=== PATIENT | female | born 1955 | race American Indian/Alaskan Native ===

== ENCOUNTER 2017-05-06 11:21 | Inpatient (IN) | payer MEDICAID, MEDICARE ==
[2017-05-06 13:24] LABS: Hematocrit 40.5 % (30.3-42.9); Hemoglobin 13.2 gm/dl (10.1-14.3); Mean Corpuscular HGB Conc 33 % (30-34); Mean Corpuscular Hemoglobin 31 pg (28-32); Mean Corpuscular Volume 94 fl (79-97); Platelet Count 218 K/mm3 (140-440); Red Blood Count 4.29 M/mm3 (3.65-5.03); Red Cell Distribution Width 14.3 % (13.2-15.2)
[2017-05-06 13:25] LABS: Albumin 3.5 g/dL (3.9-5); BUN/Creatinine Ratio 28; Blood Urea Nitrogen 17 mg/dL (7-17); Calcium 8.6 mg/dL (8.4-10.2); Hemolysis Index 112
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
--- NOTE | 2017-05-06 14:07 | Cat Scan Report ---
CT HEAD WITHOUT CONTRAST INDICATION: Altered mental status. COMPARISON: None similar at this institution. FINDINGS: Noncontrast head CT demonstrates mildly enlarged though age-appropriate, symmetric ventricles and sulci. Mild periventricular hypodensities. No acute infarct, hemorrhage, mass effect or midline shift. No abnormal extraaxial fluid collections. Normal posterior fossa with preserved basilar cisterns. Normal eye globes. Few radiopaque dental fillings create streak artifact. Mild leftward nasal septal bowing. Mild air-fluid level/mucosal thickening within left sphenoid sinus posteriorly. Left mastoid tip air cell opacification also noted. Clear remainder imaged paranasal sinuses and right mastoid air cells. Normal calvarium and scalp. CONCLUSION: Left sphenoid sinusitis and age-appropriate atrophy without acute intracranial CT abnormality, as described. Please correlate. Thank you for the opportunity to participate in this patient's care.
[2017-05-06] MEDS ORDERED: D50W (25GM) Syringe IV ONE ×4 (14:11→20:01)
[2017-05-06] MEDS ORDERED: NACL 0.9% 1000 ML 1,000 ML ONE (14:11)
[2017-05-06 14:17] LABS: Alanine Aminotransferase 45 units/L (7-56)
[2017-05-06] MEDS ORDERED: NACL 0.9% 1000 ML 1,000 ML IV ONE (14:48)
--- NOTE | 2017-05-06 15:19 | XRay Report ---
CHEST ONE VIEW INDICATION: Altered mental status. COMPARISON: None similar. FINDINGS: Portable, single, frontal chest radiograph demonstrates normal cardiomediastinal silhouette. Clear lungs. Unremarkable bones. Extrinsic EKG leads. CONCLUSION: No acute disease in the chest. Thank you for the opportunity to participate in this patient's care.
[2017-05-06 17:45] LABS: Bilirubin,Urine NEG (Negative); Blood,Urine NEG (Negative); Color,Urine Yellow (Yellow); Mucus,Urine FEW /HPF; Protein,Urine <15 mg/dL mg/dL (Negative); Urobilinogen,Urine < 2.0 mg/dL (<2.0)
[2017-05-06 17:55] LABS: Amphetamine Screen,Urine PRESUMPTIVE NEGATIVE; Cannabinoid Screen,Urine PRESUMPTIVE NEGATIVE; Cocaine Screen,Urine PRESUMPTIVE NEGATIVE; Methadone Screen,Urine PRESUMPTIVE NEGATIVE; Opiate Screen,Urine PRESUMPTIVE NEGATIVE
[2017-05-06 18:25] LABS: Benzodiazepines Screen,Urine PRESUMPTIVE POSITIVE
[2017-05-06] MEDS ORDERED: ATROPINE 0.1% (CARDIAC) ONE (20:06)
[2017-05-06] MEDS: ATROPINE IV ONE ×2 (20:17→21:12)
[2017-05-06] MEDS ORDERED: TYLENOL PO PRN (20:19)
[2017-05-06] MEDS ORDERED: ZOFRAN IV PRN (20:19)
[2017-05-06] MEDS ORDERED: SODIUM CHLORIDE FLUSH SYRINGE 10 ML IV PRN (20:19)
[2017-05-06] MEDS ORDERED: MORPHINE IV PRN (20:19)
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
[2017-05-06] MEDS ORDERED: ATIVAN PO PRN (20:22)
[2017-05-06] MEDS ORDERED: GLUCAGEN IV ONE ×2 (20:26→21:24)
[2017-05-06] MEDS ORDERED: LEVAQUIN 750MG/150ML 750 MG/150 ML BAG IV ONE (21:34)
[2017-05-06] MEDS: LEVAQUIN 750MG/150ML 750 MG/150 ML BAG IV SCH (21:42)
[2017-05-06] MEDS ORDERED: HEPARIN ONE (22:46)
[2017-05-06] MEDS ORDERED: PEPCID IV ONE (22:46)
[2017-05-06] MEDS: HEPARIN SUB-Q SCH (22:53)
[2017-05-06] MEDS: PEPCID IV SCH (22:53)
[2017-05-06] MEDS: SODIUM CHLORIDE FLUSH SYRINGE 10 ML IV SCH (22:53)
[2017-05-06] MEDS ORDERED: VANCOMYCIN PHARMACY TO DOSE IV SCH (23:00)
[2017-05-06] MEDS ORDERED: VANCOMYCIN/0.45 NS 1 GM/250 ML 1 GM/250 ML BAG IV ONE (23:00)
[2017-05-06] MEDS: KEPPRA PO SCH (23:49)
[2017-05-06] MEDS: D5NS 1,000 ML IV SCH (23:58)
[2017-05-07 03:56] LABS: Alanine Aminotransferase 40 units/L (7-56); Albumin 3.8 g/dL (3.9-5); BUN/Creatinine Ratio 23; Blood Urea Nitrogen 14 mg/dL (7-17); Calcium 8.5 mg/dL (8.4-10.2); Hemolysis Index 4
[2017-05-07 04:16] LABS: Basophils # (Auto) 0.1 K/mm3 (0.0-0.1); Basophils % (Auto) 1.1 % (0.0-1.8); Eosinophils % (Auto) 0.4 % (0.0-4.3); Hematocrit 39.1 % (30.3-42.9); Hemoglobin 13.1 gm/dl (10.1-14.3); Lymphocytes # (Auto) 1.4 K/mm3 (1.2-5.4); Mean Corpuscular HGB Conc 34 % (30-34); Mean Corpuscular Hemoglobin 31 pg (28-32); Mean Corpuscular Volume 92 fl (79-97); Monocytes # (Auto) 0.3 K/mm3 (0.0-0.8); Monocytes % (Auto) 4.3 % (0.0-7.3); Red Blood Count 4.24 M/mm3 (3.65-5.03); Red Cell Distribution Width 14.2 % (13.2-15.2)
[2017-05-07 04:19] LABS: Platelet Count 206 K/mm3 (140-440)
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
[2017-05-07] MEDS: KEPPRA PO SCH ×2 (10:34→22:07)
[2017-05-07] MEDS: HEPARIN SUB-Q SCH (10:34)
[2017-05-07] MEDS: SODIUM CHLORIDE FLUSH SYRINGE 10 ML IV SCH ×2 (10:35→22:07)
[2017-05-07] MEDS: PEPCID IV SCH ×2 (10:35→22:06)
[2017-05-07] MEDS: VANCOMYCIN 750 MG in NACL 0.9% 250ML 250 ML IV SCH (13:50)
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
[2017-05-07] MEDS: LEVAQUIN 750MG/150ML 750 MG/150 ML BAG IV SCH (21:21)
[2017-05-08] MEDS: VANCOMYCIN 750 MG in NACL 0.9% 250ML 250 ML IV SCH (00:31)
[2017-05-08 07:53] LABS: Hematocrit 37.8 % (30.3-42.9); Hemoglobin 12.9 gm/dl (10.1-14.3); Mean Corpuscular HGB Conc 34 % (30-34); Mean Corpuscular Hemoglobin 31 pg (28-32); Mean Corpuscular Volume 92 fl (79-97); Red Blood Count 4.12 M/mm3 (3.65-5.03); Red Cell Distribution Width 13.8 % (13.2-15.2)
[2017-05-08 08:18] LABS: BUN/Creatinine Ratio 15; Blood Urea Nitrogen 9 mg/dL (7-17); Calcium 8.4 mg/dL (8.4-10.2); Hemolysis Index 54
[2017-05-08 08:24] LABS: Platelet Count 204 K/mm3 (140-440)
--- NOTE | 2017-05-08 08:50 | Progress Note ---
Assessment and Plan Acute encephalopathy Asymptomatic sinus Bradycardia Hypoglycemia Hypothermia Asymtpomatic sinus bradycardia EKG shows sinus bradycardia without any ST segment changes. Troponins negative source of bradycardia is likely multifactorial including malnutrition, hypothermia, and benzodiazepines Current encephalopathy is not secondary to bradycardia as patient is maintaining blood pressure/perfusion Pending echo Continue to monitor telemetry Avoid AV marion blockers Subjective Date of service: 05/08/17 Interval history: Resting comfortably. In restraints. no change in mental status. Objective Vital Signs Pulse Pulse Resp Pulse Ox 05/08/17 07:00 68 05/07/17 23:00 72 05/07/17 22:45 18 05/07/17 22:15 20 05/07/17 22:00 96 05/07/17 15:00 46 L 05/07/17 10:00 46 L 20 98 - Physical Examination HEENT: Positive: PERRL, EOMI Abdomen: Positive: Soft, Active Bowel Sounds Extremities: Present: normal - Labs and Meds CBC 05/08/17 Range/Units 07:24 WBC 7.0 (4.5-11.0) K/mm3 RBC 4.12 (3.65-5.03) M/mm3 Hgb 12.9 (10.1-14.3) gm/dl Hct 37.8 (30.3-42.9) % Plt Count 204 (140-440) K/mm3 Comprehensive Metabolic Panel 05/08/17 Range/Units 07:24 Sodium 138 (137-145) mmol/L Potassium 4.3 (3.6-5.0) mmol/L Chloride 103.5 (98-107) mmol/L Carbon Dioxide 21 L (22-30) mmol/L BUN 9 (7-17) mg/dL Creatinine 0.6 L (0.7-1.2) mg/dL Glucose 72 (65-100) mg/dL Calcium 8.4 (8.4-10.2) mg/dL - Imaging and Cardiology EKG: report reviewed (junctional bradycardia heart rate of 45)
[2017-05-08] MEDS ORDERED: D50W (25GM) Syringe IV ONE (09:19)
[2017-05-08] MEDS: KEPPRA PO SCH ×2 (10:14→23:38)
[2017-05-08] MEDS: SODIUM CHLORIDE FLUSH SYRINGE 10 ML IV SCH ×2 (10:14→23:39)
[2017-05-08] MEDS: PEPCID IV SCH ×2 (10:15→23:39)
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
[2017-05-08] MEDS: LEVAQUIN PO SCH (23:38)
[2017-05-09] MEDS: D5NS 1,000 ML IV SCH ×2 (00:16→04:11)
[2017-05-09 06:27] LABS: Hematocrit 38.5 % (30.3-42.9); Hemoglobin 13.2 gm/dl (10.1-14.3); Mean Corpuscular HGB Conc 34 % (30-34); Mean Corpuscular Hemoglobin 31 pg (28-32); Mean Corpuscular Volume 91 fl (79-97); Red Blood Count 4.23 M/mm3 (3.65-5.03); Red Cell Distribution Width 13.8 % (13.2-15.2)
[2017-05-09 06:51] LABS: BUN/Creatinine Ratio 15; Blood Urea Nitrogen 12 mg/dL (7-17); Calcium 8.5 mg/dL (8.4-10.2); Hemolysis Index 10
[2017-05-09 07:20] LABS: Platelet Count 181 K/mm3 (140-440)
[2017-05-09] MEDS: KEPPRA PO SCH ×2 (11:01→21:56)
[2017-05-09] MEDS: PEPCID IV SCH (11:01)
[2017-05-09] MEDS ORDERED: PNEUMOVAX 23 IM ONE (12:00)
[2017-05-09] MEDS ORDERED: Fluarix Quad 2017-2018(36 MOS+ IM ONE (12:00)
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
[2017-05-09] MEDS: SODIUM CHLORIDE FLUSH SYRINGE 10 ML IV SCH ×2 (21:56)
[2017-05-09] MEDS: PEPCID PO SCH (21:56)
[2017-05-09] MEDS: LEVAQUIN PO SCH (21:56)
[2017-05-10] MEDS: D5NS 1,000 ML IV SCH (03:59)
[2017-05-10 05:44] LABS: Hematocrit 40.1 % (30.3-42.9); Hemoglobin 13.5 gm/dl (10.1-14.3); Mean Corpuscular HGB Conc 34 % (30-34); Mean Corpuscular Hemoglobin 31 pg (28-32); Mean Corpuscular Volume 93 fl (79-97); Red Blood Count 4.31 M/mm3 (3.65-5.03); Red Cell Distribution Width 14.2 % (13.2-15.2)
[2017-05-10 05:45] LABS: Platelet Count 177 K/mm3 (140-440)
[2017-05-10 06:10] LABS: BUN/Creatinine Ratio 13; Blood Urea Nitrogen 8 mg/dL (7-17); Calcium 8.1 mg/dL (8.4-10.2); Hemolysis Index 29
[2017-05-10] MEDS: PEPCID PO SCH ×2 (12:10→22:37)
[2017-05-10] MEDS: SODIUM CHLORIDE FLUSH SYRINGE 10 ML IV SCH ×2 (12:10→22:38)
[2017-05-10] MEDS: KEPPRA PO SCH ×2 (12:10→22:37)
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
[2017-05-10] MEDS: LEVAQUIN PO SCH (22:52)
[2017-05-11 06:23] LABS: Basophils # (Auto) 0.1 K/mm3 (0.0-0.1); Basophils % (Auto) 1.1 % (0.0-1.8); Eosinophils # (Auto) 0.1 K/mm3 (0.0-0.4); Hemoglobin 13.4 gm/dl (10.1-14.3); Lymphocytes # (Auto) 1.5 K/mm3 (1.2-5.4); Lymphocytes % (Auto) 26.8 % (13.4-35.0); Mean Corpuscular HGB Conc 34 % (30-34); Mean Corpuscular Hemoglobin 31 pg (28-32); Mean Corpuscular Volume 92 fl (79-97); Monocytes # (Auto) 0.5 K/mm3 (0.0-0.8); Monocytes % (Auto) 9.7 % (0.0-7.3); Red Blood Count 4.35 M/mm3 (3.65-5.03); Red Cell Distribution Width 13.9 % (13.2-15.2)
[2017-05-11 06:44] LABS: BUN/Creatinine Ratio 10; Blood Urea Nitrogen 6 mg/dL (7-17); Calcium 8.5 mg/dL (8.4-10.2); Hemolysis Index 7
[2017-05-11 08:32] LABS: Platelet Count 162 K/mm3 (140-440)
[2017-05-11] MEDS: KEPPRA PO SCH ×3 (10:51→22:55)
[2017-05-11] MEDS: SODIUM CHLORIDE FLUSH SYRINGE 10 ML IV SCH ×2 (10:51→22:55)
[2017-05-11] MEDS: PEPCID PO SCH ×2 (10:51→22:55)
[2017-05-11] MEDS: D5NS 1,000 ML IV SCH (10:52)
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
--- NOTE | 2017-05-11 13:17 | Progress Note ---
Assessment and Plan Altered mental status Hypoglycemia -resolved Persistent sinus bradycardia TSH is normal. Echocardiogram reveals well-preserved left ventricular systolic function, ejection fraction 50-55%. Recommend Continue monitoring on telemetry. Avoid AV marion blocking agents. Patient is not a candidate for aggressive and invasive cardiac evaluation and therapies. Intervention only indicated for malignant, symptomatic bradycardia arrhythmia. Subjective Date of service: 05/11/17 Interval history: Patient appears comfortable. In restraints. Objective Vital Signs Temp Pulse Resp BP Pulse Ox 05/11/17 12:48 98.3 F 56 L 22 112/59 94 05/11/17 08:28 98.4 F 52 L 20 110/60 93 05/11/17 07:31 42 L 22 109/57 100 05/11/17 01:04 97.8 F 63 20 103/63 96 05/10/17 23:12 52 L 05/10/17 22:35 20 05/10/17 21:26 58 L 22 100/55 - Physical Examination General: Cachectic, Other (confused, noncommunicative) Cardiac: Positive: Bradycardia Extremities: Absent: edema - Labs and Meds CBC 05/11/17 Range/Units 05:54 WBC 5.7 (4.5-11.0) K/mm3 RBC 4.35 (3.65-5.03) M/mm3 Hgb 13.4 (10.1-14.3) gm/dl Hct 40.0 (30.3-42.9) % Plt Count 162 (140-440) K/mm3 Lymph # 1.5 (1.2-5.4) K/mm3 [place] # 0.5 (0.0-0.8) K/mm3 Eos # 0.1 (0.0-0.4) K/mm3 Baso # 0.1 (0.0-0.1) K/mm3 Comprehensive Metabolic Panel 05/11/17 Range/Units 05:54 Sodium 140 (137-145) mmol/L Potassium 4.3 (3.6-5.0) mmol/L Chloride 104.6 (98-107) mmol/L Carbon Dioxide 24 (22-30) mmol/L BUN 6 L (7-17) mg/dL Creatinine 0.6 L (0.7-1.2) mg/dL Glucose 83 (65-100) mg/dL Calcium 8.5 (8.4-10.2) mg/dL - Imaging and Cardiology EKG: report reviewed (junctional bradycardia heart rate of 45)
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
[2017-05-11] MEDS: LEVAQUIN PO SCH (22:55)
[2017-05-12 08:08] LABS: Basophils # (Auto) 0.1 K/mm3 (0.0-0.1); Basophils % (Auto) 1.2 % (0.0-1.8); Eosinophils # (Auto) 0.1 K/mm3 (0.0-0.4); Eosinophils % (Auto) 1.9 % (0.0-4.3); Hematocrit 40.9 % (30.3-42.9); Hemoglobin 14.1 gm/dl (10.1-14.3); Lymphocytes # (Auto) 1.6 K/mm3 (1.2-5.4); Mean Corpuscular HGB Conc 34 % (30-34); Mean Corpuscular Hemoglobin 31 pg (28-32); Mean Corpuscular Volume 91 fl (79-97); Monocytes # (Auto) 0.5 K/mm3 (0.0-0.8); Monocytes % (Auto) 8.4 % (0.0-7.3); Red Blood Count 4.51 M/mm3 (3.65-5.03); Red Cell Distribution Width 14.2 % (13.2-15.2)
[2017-05-12 08:09] LABS: Platelet Count 164 K/mm3 (140-440)
[2017-05-12 08:30] LABS: BUN/Creatinine Ratio 14; Blood Urea Nitrogen 7 mg/dL (7-17); Calcium 8.6 mg/dL (8.4-10.2); Hemolysis Index 34
[2017-05-12] MEDS: PEPCID PO SCH ×2 (09:21→22:50)
[2017-05-12] MEDS: KEPPRA PO SCH ×2 (09:24→22:50)
[2017-05-12] MEDS ORDERED: ATIVAN IV SCH (09:30)
[2017-05-12] MEDS: SODIUM CHLORIDE FLUSH SYRINGE 10 ML IV SCH ×2 (09:48→22:50)
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
--- NOTE | 2017-05-12 14:24 | Progress Note ---
Assessment and Plan Altered mental status Hypoglycemia -resolved Persistent sinus bradycardia TSH is normal. Echocardiogram reveals well-preserved left ventricular systolic function, ejection fraction 50-55%. Recommend Continue monitoring on telemetry. Avoid AV marion blocking agents. Patient is not a candidate for aggressive and invasive cardiac evaluation and therapies. Intervention only indicated for malignant, symptomatic bradycardia arrhythmia. We will follow intermittently. Subjective Date of service: 05/12/17 Interval history: No interval changes. Objective Vital Signs Temp Pulse Resp BP Pulse Ox 05/12/17 12:55 97.8 F 53 L 20 114/56 92 05/12/17 08:44 97.3 F L 58 L 20 101/51 92 05/12/17 06:43 97.3 F L 62 20 99/73 95 05/12/17 01:21 97.4 F L 75 20 110/64 95 05/11/17 22:00 50 L 05/11/17 21:33 96 05/11/17 21:32 98.1 F 73 22 88/63 96 05/11/17 16:00 98.0 F 53 L 20 120/56 94 - Physical Examination General: No Apparent Distress, Cachectic HEENT: Positive: PERRL Cardiac: Positive: Reg Rate and Rhythm Extremities: Absent: edema - Labs and Meds CBC 05/12/17 Range/Units 07:27 WBC 6.3 (4.5-11.0) K/mm3 RBC 4.51 (3.65-5.03) M/mm3 Hgb 14.1 (10.1-14.3) gm/dl Hct 40.9 (30.3-42.9) % Plt Count 164 (140-440) K/mm3 Lymph # 1.6 (1.2-5.4) K/mm3 [place] # 0.5 (0.0-0.8) K/mm3 Eos # 0.1 (0.0-0.4) K/mm3 Baso # 0.1 (0.0-0.1) K/mm3 Comprehensive Metabolic Panel 05/12/17 Range/Units 07:27 Sodium 138 (137-145) mmol/L Potassium 4.2 (3.6-5.0) mmol/L Chloride 104.0 (98-107) mmol/L Carbon Dioxide 24 (22-30) mmol/L BUN 7 (7-17) mg/dL Creatinine 0.5 L (0.7-1.2) mg/dL Glucose 84 (65-100) mg/dL Calcium 8.6 (8.4-10.2) mg/dL - Imaging and Cardiology EKG: report reviewed (junctional bradycardia heart rate of 45)
[2017-05-12] MEDS: D5NS 1,000 ML IV SCH ×2 (17:16)
[2017-05-12] MEDS: LEVAQUIN PO SCH (22:50)
[2017-05-13] MEDS: VALIUM PO PRN ×2 (00:21→12:11)
[2017-05-13 08:26] LABS: Basophils % (Auto) 0.7 % (0.0-1.8); Eosinophils # (Auto) 0.1 K/mm3 (0.0-0.4); Eosinophils % (Auto) 2.2 % (0.0-4.3); Hematocrit 42.2 % (30.3-42.9); Hemoglobin 14.3 gm/dl (10.1-14.3); Lymphocytes # (Auto) 1.5 K/mm3 (1.2-5.4); Lymphocytes % (Auto) 26.5 % (13.4-35.0); Mean Corpuscular HGB Conc 34 % (30-34); Mean Corpuscular Hemoglobin 31 pg (28-32); Mean Corpuscular Volume 93 fl (79-97); Monocytes # (Auto) 0.5 K/mm3 (0.0-0.8); Monocytes % (Auto) 9.3 % (0.0-7.3); Red Blood Count 4.56 M/mm3 (3.65-5.03); Red Cell Distribution Width 14.6 % (13.2-15.2)
[2017-05-13 08:28] LABS: Platelet Count 148 K/mm3 (140-440)
[2017-05-13 08:52] LABS: BUN/Creatinine Ratio 17; Blood Urea Nitrogen 10 mg/dL (7-17); Calcium 8.8 mg/dL (8.4-10.2); Hemolysis Index 31
[2017-05-13] MEDS: KEPPRA PO SCH ×2 (10:58→23:20)
[2017-05-13] MEDS: PEPCID PO SCH ×2 (10:58→23:20)
[2017-05-13] MEDS: SODIUM CHLORIDE FLUSH SYRINGE 10 ML IV SCH ×2 (10:59→23:22)
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
[2017-05-13] MEDS ORDERED: VALIUM IV NR (13:11)
--- NOTE | 2017-05-13 22:36 | Progress Note ---
Assessment and Plan Impression: 1. Benzodiazepine intoxication 2. Dysarthria 3. Dysphasia Plan: 1. Speech and swallow evaluation. 2. Will order MRI to look for damage from overdose which could include hypoxic- ischemic component. Ordered iv diazepam for MRI. 3. May need EEG Tuesday depending on clinical course and MRI results. 4. Changed diazepam to 5 mg every 8 hours, since may have been on 2 mg lorazepam every 8 hours so 2 mg doses of diazepam would be low. 5. Probably stable enough to go to a detox facility or SNF if she becomes calm enough on new diazepam regimen and nothing significant on MRI. 30 minutes spent today with this patient. Subjective Date of service: 05/13/17 Principal diagnosis: encephalopathy Interval history: HPI: This 62-year-old -[place] female is seen again in follow up for encephalopathy following benzodiazepine intoxication. She is now on diazepam but only as a prn every 8 hours at 2 mg per dose. She is calmer but still requires restraints. Objective - Exam Narrative Exam: Gen. appearance: Well-developed but thin (per BMI) early 60s -[place] female with 4 limb restraints. Neurologic Exam: Mental Status: Not oriented even to multiple choice questions for location or year or month, cannot give president after first name prompt and first letter of last name as prompt, speech is mostly slurred but when asked her name she says [place] quite distinctly but won't give her last name or can't, follows some commands, cannot name pen or comb. Cranial Nerves: fung full grossly to visual threat, PERRL, EOMs full spontaneously though not tracking my finger, grimaces symmetrically to supraorbital pressure, shoulder shrug cannot be checked, tongue protrudes midline to command. Cerebellar: finger to nose apraxic but later spontaneously gets wrists or hands to chin without tremor, [id number] cannot be tested safely. Motor Exam Upper Extremities: No obvious drift, materials planner is 4 right and 4+ left. Motor Exam Lower Extremities: Pedal push is 5- right but more apraxic at 4-4+ on the left to command. - Laboratory Findings CBC and BMP: 05/13/17 07:38 05/13/17 07:38 Abnormal Lab Findings: Abnormal Labs 05/06/17 05/06/17 05/06/17 13:02 13:02 13:02 [place] % (Auto) Seg Neutrophils % Chloride 108.7 H Carbon Dioxide 21 L BUN Creatinine 0.6 L POC Glucose Calcium Alkaline Phosphatase 177 H Total Protein Albumin 3.5 L Salicylates < 0.3 L Acetaminophen < 5.0 L 05/06/17 05/06/17 05/06/17 14:13 16:38 19:55 [place] % (Auto) Seg Neutrophils % Chloride Carbon Dioxide BUN Creatinine POC Glucose 64 L 159 H 45 L Calcium Alkaline Phosphatase Total Protein Albumin Salicylates Acetaminophen 05/06/17 05/07/17 05/07/17 21:44 03:34 03:34 [place] % (Auto) Seg Neutrophils % 74.2 H Chloride Carbon Dioxide BUN Creatinine 0.6 L POC Glucose 149 H Calcium Alkaline Phosphatase 179 H Total Protein 6.1 L Albumin 3.8 L Salicylates Acetaminophen 05/07/17 05/08/17 05/08/17 22:52 07:22 07:24 [place] % (Auto) Seg Neutrophils % Chloride Carbon Dioxide 21 L BUN Creatinine 0.6 L POC Glucose 64 L 42 L Calcium Alkaline Phosphatase Total Protein Albumin Salicylates Acetaminophen 05/08/17 05/09/17 05/09/17 16:28 11:55 16:34 [place] % (Auto) Seg Neutrophils % Chloride Carbon Dioxide BUN Creatinine POC Glucose 64 L 111 H 107 H Calcium Alkaline Phosphatase Total Protein Albumin Salicylates Acetaminophen 05/10/17 05/11/17 05/11/17 05:17 05:54 05:54 [place] % (Auto) 9.7 H Seg Neutrophils % Chloride Carbon Dioxide BUN 6 L Creatinine 0.6 L 0.6 L POC Glucose Calcium 8.1 L Alkaline Phosphatase Total Protein Albumin Salicylates Acetaminophen 05/12/17 05/12/17 05/12/17 07:27 07:27 11:39 [place] % (Auto) 8.4 H Seg Neutrophils % Chloride Carbon Dioxide BUN Creatinine 0.5 L POC Glucose 144 H Calcium Alkaline Phosphatase Total Protein Albumin Salicylates Acetaminophen 05/12/17 05/12/17 05/13/17 16:33 21:25 07:38 [place] % (Auto) 9.3 H Seg Neutrophils % Chloride Carbon Dioxide BUN Creatinine POC Glucose 109 H 62 L Calcium Alkaline Phosphatase Total Protein Albumin Salicylates Acetaminophen 05/13/17 07:38 [place] % (Auto) Seg Neutrophils % Chloride Carbon Dioxide BUN Creatinine 0.6 L POC Glucose Calcium Alkaline Phosphatase Total Protein Albumin Salicylates Acetaminophen
[2017-05-13] MEDS: VALIUM PO SCH (23:09)
[2017-05-13] MEDS: LEVAQUIN PO SCH (23:21)
[2017-05-14] MEDS: D5NS 1,000 ML IV SCH ×2 (06:15→17:10)
[2017-05-14] MEDS: VALIUM PO SCH ×4 (08:01→23:16)
[2017-05-14] MEDS: SODIUM CHLORIDE FLUSH SYRINGE 10 ML IV SCH ×2 (10:00→23:18)
[2017-05-14] MEDS: KEPPRA PO SCH ×2 (11:20→23:17)
[2017-05-14] MEDS: PEPCID PO SCH ×2 (11:20→23:17)
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
[2017-05-14 15:26] LABS: Basophils % (Auto) 0.5 % (0.0-1.8); Eosinophils # (Auto) 0.1 K/mm3 (0.0-0.4); Eosinophils % (Auto) 1.4 % (0.0-4.3); Hematocrit 45.3 % (30.3-42.9); Hemoglobin 14.9 gm/dl (10.1-14.3); Lymphocytes # (Auto) 1.4 K/mm3 (1.2-5.4); Lymphocytes % (Auto) 24.2 % (13.4-35.0); Mean Corpuscular HGB Conc 33 % (30-34); Mean Corpuscular Hemoglobin 31 pg (28-32); Mean Corpuscular Volume 93 fl (79-97); Monocytes # (Auto) 0.5 K/mm3 (0.0-0.8); Monocytes % (Auto) 9.4 % (0.0-7.3); Red Blood Count 4.85 M/mm3 (3.65-5.03); Red Cell Distribution Width 14.2 % (13.2-15.2)
[2017-05-14 15:57] LABS: BUN/Creatinine Ratio 16; Blood Urea Nitrogen 8 mg/dL (7-17); Calcium 8.5 mg/dL (8.4-10.2); Hemolysis Index 23
[2017-05-14 16:21] LABS: Platelet Count 169 K/mm3 (140-440)
--- NOTE | 2017-05-14 17:44 | Progress Note ---
Subjective Date of service: 05/14/17 Principal diagnosis: encephalopathy Interval history: I would suggest if MRI is unrevealing, to do LP (with sedation) for cell count and diff, protein and glucose, gram stain and C&S, fungal stain and culture, AFB stain and culture, cryptococcal antigen, Betty ink prep, PCR for herpes simplex 1 and 2 and CMV, VDRL. Objective - Vital Sign Vital Signs - 12hr 05/14/17 05/14/17 05/14/17 08:04 10:00 12:15 Temperature 97.6 F 97.3 F L Pulse Rate Respiratory 20 20 18 Rate Blood Pressure 121/62 109/86 O2 Sat by Pulse 99 86 Oximetry 05/14/17 05/14/17 12:20 12:34 Temperature 98.0 F 97.8 F Pulse Rate 61 64 Respiratory 22 20 Rate Blood Pressure 158/80 114/90 O2 Sat by Pulse 95 65 L Oximetry - Laboratory Findings CBC and BMP: 05/14/17 15:13 05/14/17 15:13 Abnormal Lab Findings: Abnormal Labs 05/06/17 05/06/17 05/06/17 13:02 13:02 13:02 Hgb Hct [place] % (Auto) Seg Neutrophils % Chloride 108.7 H Carbon Dioxide 21 L BUN Creatinine 0.6 L POC Glucose Calcium Alkaline Phosphatase 177 H Total Protein Albumin 3.5 L Salicylates < 0.3 L Acetaminophen < 5.0 L 05/06/17 05/06/17 05/06/17 14:13 16:38 19:55 Hgb Hct [place] % (Auto) Seg Neutrophils % Chloride Carbon Dioxide BUN Creatinine POC Glucose 64 L 159 H 45 L Calcium Alkaline Phosphatase Total Protein Albumin Salicylates Acetaminophen 05/06/17 05/07/17 05/07/17 21:44 03:34 03:34 Hgb Hct [place] % (Auto) Seg Neutrophils % 74.2 H Chloride Carbon Dioxide BUN Creatinine 0.6 L POC Glucose 149 H Calcium Alkaline Phosphatase 179 H Total Protein 6.1 L Albumin 3.8 L Salicylates Acetaminophen 05/07/17 05/08/17 05/08/17 22:52 07:22 07:24 Hgb Hct [place] % (Auto) Seg Neutrophils % Chloride Carbon Dioxide 21 L BUN Creatinine 0.6 L POC Glucose 64 L 42 L Calcium Alkaline Phosphatase Total Protein Albumin Salicylates Acetaminophen 0405/09/17 05/09/17 16:28 11:55 16:34 Hgb Hct [place] % (Auto) Seg Neutrophils % Chloride Carbon Dioxide BUN Creatinine POC Glucose 64 L 111 H 107 H Calcium Alkaline Phosphatase Total Protein Albumin Salicylates Acetaminophen 05/10/17 05/11/17 05/11/17 05:17 05:54 05:54 Hgb Hct [place] % (Auto) 9.7 H Seg Neutrophils % Chloride Carbon Dioxide BUN 6 L Creatinine 0.6 L 0.6 L POC Glucose Calcium 8.1 L Alkaline Phosphatase Total Protein Albumin Salicylates Acetaminophen 05/12/17 05/12/17 05/12/17 07:27 07:27 11:39 Hgb Hct [place] % (Auto) 8.4 H Seg Neutrophils % Chloride Carbon Dioxide BUN Creatinine 0.5 L POC Glucose 144 H Calcium Alkaline Phosphatase Total Protein Albumin Salicylates Acetaminophen 05/12/17 05/12/17 05/13/17 16:33 21:25 07:38 Hgb Hct [place] % (Auto) 9.3 H Seg Neutrophils % Chloride Carbon Dioxide BUN Creatinine POC Glucose 109 H 62 L Calcium Alkaline Phosphatase Total Protein Albumin Salicylates Acetaminophen 05/13/17 05/14/17 05/14/17 07:38 15:13 15:13 Hgb 14.9 H Hct 45.3 H [place] % (Auto) 9.4 H Seg Neutrophils % Chloride Carbon Dioxide BUN Creatinine 0.6 L 0.5 L POC Glucose Calcium Alkaline Phosphatase Total Protein Albumin Salicylates Acetaminophen
[2017-05-14] MEDS: LEVAQUIN PO SCH (23:18)
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
[2017-05-15] MEDS: KEPPRA PO SCH ×2 (09:35→23:01)
[2017-05-15] MEDS: PEPCID PO SCH ×2 (09:35→23:01)
[2017-05-15] MEDS: VALIUM PO SCH ×3 (09:36→23:01)
[2017-05-15] MEDS: SODIUM CHLORIDE FLUSH SYRINGE 10 ML IV SCH ×2 (10:00→23:02)
[2017-05-15] MEDS: LEVAQUIN PO SCH (23:01)
[2017-05-15] MEDS: D5NS 1,000 ML IV SCH (23:14)
[2017-05-16] MEDS: VALIUM PO SCH ×3 (09:53→23:21)
--- NOTE | 2017-05-16 10:20 | Progress Note ---
Subjective - Reason for Consult Consult date: 05/16/17 Reason for consult: Psychiatry Follow-up - Chief Complaint Chief complaint: "AMS" 62-year-old -[place] female who is being consulted for psychiatric services due to encephalopathy following benzodiazepine intoxication. Today the patient is calm, but nonverbal during the assessment. I was not able to complete an assessment of this patient. Mental Status Exam - Vital signs Last Vital Signs Temp 97.3 F L 05/16/17 05:05 Pulse 70 05/16/17 07:41 Resp 18 05/16/17 07:40 BP 113/67 05/16/17 07:40 Pulse Ox 76 L 05/16/17 07:41 - Exam Narrative exam: MSE could not be completed due to patient's condition. Assessment and Plan Impression: Hx of Dementia. 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 Today the patient is calm, but nonverbal during the assessment. The patient is in restraints. Medical: Acute Toxic Metabolic Encephalopathy (Benzo Intoxication). Recommendation/Plan: Continue Valium taper per the Hospitalist. Recommend the following delirium precautions below: 1. Frequently reorient patient and involve him/her in their care (simple explanations of procedures, tests, medications). 2. Lights on and shades open during daytime hours. 3. Try to avoid unnecessary interruptions to sleep during nighttime hours. 4. Obtain glasses, hearing aids from home if patient uses these at baseline. 5. Avoid medications that may exacerbate delirium (especially narcotics, barbiturates, ambien, lunesta, benzos, and medications with excessive anticholinergic properties). The patient is currently being tapered off Valium. 6. Recommend 1:1 sitter for safety. 7. D/C restraint when not indicated.
[2017-05-16] MEDS: KEPPRA PO SCH ×2 (10:31→23:20)
[2017-05-16] MEDS: PEPCID PO SCH ×2 (10:32→23:21)
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
[2017-05-16] MEDS: D5NS 1,000 ML IV SCH (13:19)
[2017-05-16] MEDS: LEVAQUIN PO SCH (23:21)
[2017-05-16] MEDS: SODIUM CHLORIDE FLUSH SYRINGE 10 ML IV SCH (23:22)
[2017-05-17] MEDS: VALIUM PO SCH ×2 (08:48→16:04)
--- NOTE | 2017-05-17 10:44 | Progress Note ---
Subjective - Reason for Consult Consult date: 05/17/17 Reason for consult: Psychiatry Follow-up - Chief Complaint Chief complaint: "AMS" 62-year-old -[place] female who is being consulted for psychiatric services due to encephalopathy following benzodiazepine intoxication. Today the patient is calm, but still nonverbal during the assessment. She would not answer any questions asked of her. Mental Status Exam - Vital signs Last Vital Signs Temp 98.6 F 05/17/17 09:48 Pulse 92 H 05/17/17 09:48 Resp 18 05/17/17 09:48 BP 133/72 05/17/17 09:48 Pulse Ox 93 05/17/17 09:48 - Exam Narrative exam: MSE could not be completed due to patient's condition. Assessment and Plan Impression: Hx of Dementia. 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 Today the patient is calm, but still nonverbal during the assessment. The patient is in restraints. Medical: Acute Toxic Metabolic Encephalopathy (Benzo Intoxication). Recommendation/Plan: Continue Valium taper per the Hospitalist. Recommend the following delirium precautions below: 1. Frequently reorient patient and involve him/her in their care (simple explanations of procedures, tests, medications). 2. Lights on and shades open during daytime hours. 3. Try to avoid unnecessary interruptions to sleep during nighttime hours. 4. Obtain glasses, hearing aids from home if patient uses these at baseline. 5. Avoid medications that may exacerbate delirium (especially narcotics, barbiturates, ambien, lunesta, benzos, and medications with excessive anticholinergic properties). The patient is currently being tapered off Valium. 6. Recommend 1:1 sitter for safety. 7. D/C restraint when not indicated.
[2017-05-17] MEDS: KEPPRA PO SCH ×2 (10:50→21:48)
[2017-05-17] MEDS: PEPCID PO SCH ×2 (10:50→21:46)
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
[2017-05-17] MEDS: SODIUM CHLORIDE FLUSH SYRINGE 10 ML IV SCH (21:49)
[2017-05-17] MEDS: LEVAQUIN PO SCH (22:00)
[2017-05-18] MEDS: D5NS 1,000 ML IV SCH (05:26)
--- NOTE | 2017-05-18 13:54 | Progress Note ---
Subjective - Reason for Consult Consult date: 05/18/17 Reason for consult: Psychiatric Follow-up Evaluation - Chief Complaint Chief complaint: Altered mental status Patient is a 62-year-old -Malagasy female who is being consulted for psychiatric services due to encephalopathy following benzodiazepine intoxication. Today patient is seen sleeping. Patient easily arousable but nonverbal. Patient noted to be in restraints. Patient is in no apparent distress. Appears fidgety at times. Provider was able to speak with [facility]'s nurse, Michaela, who stated that patient has been sleeping most of the day. She reported that she has noted fidgety behavior as well throughout the day. Mental Status Exam - Vital signs Last Vital Signs Temp 97.3 F L 05/18/17 04:11 Pulse 38 L 05/18/17 08:52 Resp 18 05/18/17 04:11 BP 102/57 05/18/17 08:52 Pulse Ox 100 05/18/17 08:52 - Exam Narrative exam: Mental Status Exam General Appearance: Disheveled in restraints Eye Contact: Poor Orientation: Alert and oriented x 0; Confused Attitude/Behavior: Unable to assess Sensorium: Unable to assess Psychomotor & Musculoskeletal Activity: Fidgety Mood: Anxious Affect: Inappropriate Speech/Language: Unable to assess Thought Processes: Unable to assess Thought Content: Unable to assess Perception: Unable to assess Concentration/Attention: Unable to assess Suicidal Ideation/Plan: Unable to assess Homicidal Ideation/Plan: Unable to assess Assessment and Plan Impression: Hx of Dementia. 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 Today the patient is seen asleep. Fidgety behavior noted. She continues to be nonverbal. The patient is in restraints. No respiratory distress noted. Medical: Acute Toxic Metabolic Encephalopathy (Benzo Intoxication). Recommendation/Plan: Continue Valium taper per the Hospitalist. Recommend the following delirium precautions below: 1. Frequently reorient patient and involve him/her in their care (simple explanations of procedures, tests, medications). 2. Lights on and shades open during daytime hours. 3. Try to avoid unnecessary interruptions to sleep during nighttime hours. 4. Obtain glasses, hearing aids from home if patient uses these at baseline. 5. Avoid medications that may exacerbate delirium (especially narcotics, barbiturates, ambien, lunesta, benzos, and medications with excessive anticholinergic properties). The patient is currently being tapered off Valium. 6. Recommend 1:1 sitter for safety. 7. Discontinue restraints when not indicated. 8. Will reassess on 05/19/2017.
[2017-05-18] MEDS: KEPPRA PO SCH ×2 (14:03→21:14)
[2017-05-18] MEDS: PEPCID PO SCH ×2 (14:03→21:14)
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
[2017-05-18] MEDS: VALIUM PO SCH ×3 (18:02→18:03)
[2017-05-18] MEDS: SODIUM CHLORIDE FLUSH SYRINGE 10 ML IV SCH ×3 (18:04→21:17)
[2017-05-19] MEDS: VALIUM PO SCH ×3 (00:22→22:55)
[2017-05-19] MEDS: D5NS 1,000 ML IV SCH (00:27)
--- NOTE | 2017-05-19 09:53 | Progress Note ---
Subjective - Reason for Consult Consult date: 05/19/17 Reason for consult: Psychiatry Follow-up - Chief Complaint Chief complaint: "AMS" 62-year-old -[place] female who is being consulted for psychiatric services due to encephalopathy following benzodiazepine intoxication. There's no change to the patient presentation from previous assessments. Mental Status Exam - Vital signs Last Vital Signs Temp 97.3 F L 05/19/17 08:00 Pulse 49 L 05/19/17 08:00 Resp 18 05/19/17 08:00 BP 96/62 05/19/17 08:00 Pulse Ox 97 05/19/17 08:00 - Exam Narrative exam: MSE could not be completed because of the patient's condition. Assessment and Plan Impression: Hx of Dementia. 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 Today the patient is calm, but still nonverbal during the assessment. The patient is in restraints. Medical: Acute Toxic Metabolic Encephalopathy (Benzo Intoxication). Recommendation/Plan: Continue Valium taper per the Hospitalist. Recommend the following delirium precautions below: 1. Frequently reorient patient and involve him/her in their care (simple explanations of procedures, tests, medications). 2. Lights on and shades open during daytime hours. 3. Try to avoid unnecessary interruptions to sleep during nighttime hours. 4. Obtain glasses, hearing aids from home if patient uses these at baseline. 5. Avoid medications that may exacerbate delirium (especially narcotics, barbiturates, ambien, lunesta, benzos, and medications with excessive anticholinergic properties). The patient is currently being tapered off Valium. 6. Recommend 1:1 sitter for safety. 7. D/C restraint when not indicated.
[2017-05-19] MEDS: KEPPRA PO SCH ×2 (10:41→22:55)
[2017-05-19] MEDS: PEPCID PO SCH ×2 (10:41→22:55)
[2017-05-19] MEDS: SODIUM CHLORIDE FLUSH SYRINGE 10 ML IV SCH ×2 (10:46→22:55)
--- NOTE | 2017-05-19 15:49 | Fluoroscopy Report ---
MODIFIED BARIUM SWALLOW INDICATION: Dysphagia. COMPARISON: None similar. FINDINGS: Fluoroscopy with video provided by radiologist for speech therapist to assess the swallowing mechanism. Food items of various consistencies given. One image recorded. IMPRESSION: Successful modified barium swallow. Please refer to detailed report from speech pathologist. Thank you for the opportunity to participate in this patient's care.
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
[2017-05-19] MEDS ORDERED: VALIUM PO SCH (22:00)
[2017-05-20] MEDS: D5NS 1,000 ML IV SCH (00:02)
--- NOTE | 2017-05-20 12:38 | Progress Note ---
Subjective - Reason for Consult Consult date: 05/20/17 Reason for consult: Psychiatry Follow-up - Chief Complaint Chief complaint: "AMS" 62-year-old -[place] female who is being consulted for psychiatric services due to encephalopathy following benzodiazepine intoxication. Today the patieny is alert, but non verbal. She mumbles when asked questions. No gestures of SI/HI's. Mental Status Exam - Vital signs Last Vital Signs Temp 97.5 F L 05/20/17 08:10 Pulse 77 05/20/17 05:02 Resp 14 05/20/17 08:10 BP 97/49 05/20/17 08:10 Pulse Ox 95 05/20/17 05:02 - Exam Narrative exam: MSE could not be completed because of the patient's condition. Assessment and Plan Impression: Hx of Dementia. 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 Today the patient is calm, but still nonverbal during the assessment. The patient is in restraints. Medical: Acute Toxic Metabolic Encephalopathy (Benzo Intoxication). Recommendation/Plan: Continue Valium taper per the Hospitalist. Recommend the following delirium precautions below: 1. Frequently reorient patient and involve him/her in their care (simple explanations of procedures, tests, medications). 2. Lights on and shades open during daytime hours. 3. Try to avoid unnecessary interruptions to sleep during nighttime hours. 4. Obtain glasses, hearing aids from home if patient uses these at baseline. 5. Avoid medications that may exacerbate delirium (especially narcotics, barbiturates, ambien, lunesta, benzos, and medications with excessive anticholinergic properties). The patient is currently being tapered off Valium. 6. Recommend 1:1 sitter for safety. 7. D/C restraint when not indicated.
--- NOTE | 2017-05-20 13:29 | Discharge Summary ---
Providers - Providers Date of Admission: 05/06/17 18:01 Attending physician: GEOFF CARDOZA MD 05/06/17 20:30 Consult to Case Management [CONS] Routine Services Needed at Discharge: Home Health Services Other Notified:: case supervisor Comment:: care home facility placement 05/07/17 17:10 Consult to Mental Health [CONS] Routine Reason For Exam: BZD overdose Place consult to:: Dr. Saurav Lara Notified:: [id number] Was contact made?: No Time called:: 10:38 Comment:: made several attempts no answer so added pt to list so they receive printou 05/08/17 15:21 Consult to Dietitian/Nutrition [CONS] Routine Physician Instructions: Reason For Exam: Reason for Consult: Malnutrition 05/11/17 07:54 Consult to Physician [CONS] Routine Comment: Consulting Provider: ROMAN COE Physician Instructions: Reason For Exam: AMS 05/12/17 09:10 psychiatry consult [Consult to Mental Health] [CONS] Routine Reason For Exam: BZD overdose Place consult to:: sofia Notified:: yes Phone number called:: [phone] If yes, spoke with:: dea Time called:: 11:15 05/13/17 22:34 Speech Therapy Evaluation and Treat [CONS] Urgent Reason For Exam: dysarthria, possible dysphagia too, please assess 05/18/17 11:56 Consult to Anesthesiology [CONS] Routine Consulting Provider: [facility], ELIAN Reason For Exam: sedation for MRI and Lumber puncture Primary care physician: SOCIAL MEDIA DIRECTOR Hospitalization Condition: Stable Hospital course: Per family, patient has Alzheimer dementia at advanced stage, has been worked up by multiple doctors in the past. He further states that the patient has been evaluated by neurologist, licensing analyst in the past and that he aditi Disposition: DC/TX-06 HOME UNDER HOME [facility] Time spent for discharge: 35 mins Exam - Physical Exam Narrative exam: General appearance: Present: no acute distress, other (alert, but unable to communicate or follow commands) - EENT Eyes: Present: PERRL, EOM intact ENT: hearing intact, clear oral mucosa, dentition normal - Neck Neck: Present: supple, normal ROM - Respiratory Respiratory effort: normal Respiratory: bilateral: CTA - Cardiovascular Rhythm: regular Heart Sounds: Present: S1 & S2. Absent: gallop, rub - Extremities Extremities: no ischemia, No edema, Full ROM - Abdominal General gastrointestinal: soft, non-tender, non-distended, normal bowel sounds - Integumentary Integumentary: Present: clear, warm, dry - Neurologic Neurologic: CNII-XII intact, moves all extremities - Constitutional Vitals: Temp Pulse Resp BP Pulse Ox 97.5 F L 77 14 97/49 95 05/20/17 08:10 05/20/17 05:02 05/20/17 08:10 05/20/17 08:10 05/20/17 05:02 Plan Activity: advance as tolerated, fall precautions Follow up with: PRIMARY CARE, [Primary Care Provider] - 3-5 Days
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
[2017-05-20] MEDS: PEPCID PO SCH ×2 (16:29→22:29)
[2017-05-20] MEDS: KEPPRA PO SCH ×2 (16:29→22:29)
[2017-05-20] MEDS: SODIUM CHLORIDE FLUSH SYRINGE 10 ML IV SCH ×2 (19:37→22:29)
[2017-05-20] MEDS: VALIUM PO SCH (22:29)
[2017-05-21] MEDS: PEPCID PO SCH ×2 (10:38→22:06)
[2017-05-21] MEDS: KEPPRA PO SCH ×2 (10:38→22:06)
[2017-05-21] MEDS: SODIUM CHLORIDE FLUSH SYRINGE 10 ML IV SCH ×2 (10:39→22:07)
--- NOTE | 2017-05-21 14:31 | Progress Note ---
<JORDIN MCKENNA - Last Filed: 05/21/17 15:06> Assessment and Plan Assessment and plan: Assessment: Patient seen and evaluated today. Is awake and responsive but unable to follow commands. Overall condition intact, no apparent distress noted. Resident was discharge yesterday 05/20/2017 but son did not show up to take patient home. Will see if son comes today to take resident home if not will refer to community mental health social worker for plan placement. Plan: Discharge: Discharge patient home with continue home health services as this was preadmission arrangement Severe malnutrition: bmi 14.9: consulted Can Sorter. Failed MBS. May need Peg TUBE in the near future. Family educated on the possible need for PEG but family reluctant at present time and stated will take her home and resume pre-hospital diet BZD abuse: Mental health following. We will begin a slow taper with diazepam per neurology. Dementia: Maintained on safety measures. Aged disorder. Keppra increased by neurology. History Interval history: Patient is a 62 year old female with long standing history of Benzodiazepine use, Seizure Disorder and Alzheimer's disease who present to the ER after being found unresponsive on the ground at home. As per the family, patient apparently uses excess amount of Ativan. Patient apparently is with decreased responsiveness until 3:00pm every day when her Ativan wears off. Patient was found to be in low 40s, heart rate. EMS gave 0.5 atropine and heart rate went up to 60s. Also blood glucose was low 77. Patient unresponsive to painful stimuli. Patient is now with acute toxic metabolic encephalopathy most likely secondary to benzodiazepine. MRI today. Follow-up MRI. If MRI is unrevealing, neurology recommends LP (with sedation) for cell count and diff, protein and glucose, gram stain and C&S, fungal stain and culture, AFB stain and culture, cryptococcal antigen, Betty ink prep, PCR for herpes simplex 1 and 2 and CMV, VDRL. consult placed to IR and anesthesia for assistance. Hospitalist Physical - Constitutional Vitals: Temp Pulse Resp BP Pulse Ox 97.9 F 91 H 14 117/67 99 05/21/17 11:44 05/21/17 11:44 05/21/17 11:44 05/21/17 11:44 05/21/17 11:44 General appearance: Present: no acute distress, cachectic, other (awake and responsive, but unable to communicate or follow commands) - EENT Eyes: Present: PERRL ENT: other (unable to determine due to cognitive status) - Neck Neck: Present: supple, normal ROM - Respiratory Respiratory effort: normal Respiratory: bilateral: CTA - Cardiovascular Rhythm: regular Heart Sounds: Present: S1 & S2 - Extremities Extremities: no ischemia, pulses intact, pulses symmetrical, No edema Peripheral Pulses: within normal limits - Abdominal General gastrointestinal: soft, non-tender, non-distended, normal bowel sounds - Integumentary Integumentary: Present: clear, warm, dry - Psychiatric Psychiatric: agitated Results - Labs CBC & Chem 7: 05/14/17 15:13 05/14/17 15:13 Labs: Laboratory Last Values WBC 5.6 K/mm3 (4.5-11.0) 05/14/17 15:13 RBC 4.85 M/mm3 (3.65-5.03) 05/14/17 15:13 Hgb 14.9 gm/dl (10.1-14.3) H 05/14/17 15:13 Hct 45.3 % (30.3-42.9) H 05/14/17 15:13 MCV 93 fl (79-97) 05/14/17 15:13 MCH 31 pg (28-32) 05/14/17 15:13 MCHC 33 % (30-34) 05/14/17 15:13 RDW 14.2 % (13.2-15.2) 05/14/17 15:13 Plt Count 169 K/mm3 (140-440) 05/14/17 15:13 Lymph % (Auto) 24.2 % (13.4-35.0) 05/14/17 15:13 [place] % (Auto) 9.4 % (0.0-7.3) H 05/14/17 15:13 Eos % (Auto) 1.4 % (0.0-4.3) 05/14/17 15:13 Baso % (Auto) 0.5 % (0.0-1.8) 05/14/17 15:13 Lymph # 1.4 K/mm3 (1.2-5.4) 05/14/17 15:13 [place] # 0.5 K/mm3 (0.0-0.8) 05/14/17 15:13 Eos # 0.1 K/mm3 (0.0-0.4) 05/14/17 15:13 Baso # 0.0 K/mm3 (0.0-0.1) 05/14/17 15:13 Seg Neutrophils % 64.5 % (40.0-70.0) 05/14/17 15:13 Seg Neutrophils # 3.6 K/mm3 (1.8-7.7) 05/14/17 15:13 Sodium 141 mmol/L (137-145) 05/14/17 15:13 Potassium 4.7 mmol/L (3.6-5.0) 05/14/17 15:13 Chloride 104.2 mmol/L (98-107) 05/14/17 15:13 Carbon Dioxide 25 mmol/L (22-30) 05/14/17 15:13 Anion Gap 17 mmol/L 05/14/17 15:13 BUN 8 mg/dL (7-17) 05/14/17 15:13 Creatinine 0.5 mg/dL (0.7-1.2) L 05/14/17 15:13 Estimated GFR > 60 ml/min 05/14/17 15:13 BUN/Creatinine Ratio 16 % 05/14/17 15:13 Glucose 98 mg/dL (65-100) 05/14/17 15:13 POC Glucose 69 (70-105) L 05/21/17 11:54 Hemoglobin A1c 5.6 % (4-6) 05/06/17 22:17 Calcium 8.5 mg/dL (8.4-10.2) 05/14/17 15:13 Total Bilirubin 0.30 mg/dL (0.1-1.2) 05/07/17 03:34 AST 21 units/L (5-40) 05/07/17 03:34 ALT 40 units/L (7-56) 05/07/17 03:34 Alkaline Phosphatase 179 units/L (35-129) H 05/07/17 03:34 Ammonia 51.0 umol/L (25-60) 05/19/17 10:37 Troponin T < 0.010 ng/mL (0.00-0.029) 05/07/17 08:27 Total Protein 6.1 g/dL (6.3-8.2) L 05/07/17 03:34 Albumin 3.8 g/dL (3.9-5) L 05/07/17 03:34 Albumin/Globulin Ratio 1.7 % 05/07/17 03:34 TSH 2.220 mlU/mL (0.270-4.200) 05/06/17 13:02 Urine Color Yellow (Yellow) 05/06/17 17:28 Urine Turbidity Clear (Clear) 05/06/17 17:28 Urine pH 5.0 (5.0-7.0) 05/06/17 17:28 Ur Specific [place] 1.021 (1.003-1.030) 05/06/17 17:28 Urine Protein <15 mg/dl mg/dL (Negative) 05/06/17 17:28 Urine Glucose (UA) >=500 mg/dL (Negative) 05/06/17 17:28 Urine Ketones Neg mg/dL (Negative) 05/06/17 17:28 Urine Blood Neg (Negative) 05/06/17 17:28 Urine Nitrite Neg (Negative) 05/06/17 17:28 Urine Bilirubin Neg (Negative) 05/06/17 17:28 Urine Urobilinogen < 2.0 mg/dL (<2.0) 05/06/17 17:28 Ur Leukocyte Esterase Neg (Negative) 05/06/17 17:28 Urine WBC (Auto) 1.0 /HPF (0.0-6.0) 05/06/17 17:28 Urine RBC (Auto) 3.0 /HPF (0.0-6.0) 05/06/17 17:28 U Epithel Cells (Auto) < 1.0 /HPF (0-13.0) 05/06/17 17:28 Urine Mucus Few /HPF 05/06/17 17:28 Salicylates < 0.3 mg/dL (2.8-20.0) L 05/06/17 13:02 Urine Opiates Screen Presumptive negative 05/06/17 17:28 Urine Methadone Screen Presumptive negative 05/06/17 17:28 Acetaminophen < 5.0 ug/mL (10.0-30.0) L 05/06/17 13:02 Ur Barbiturates Screen Presumptive negative 05/06/17 17:28 Ur Phencyclidine Scrn Presumptive negative 05/06/17 17:28 Ur Amphetamines Screen Presumptive negative 05/06/17 17:28 U Benzodiazepines Scrn Presumptive positive 05/06/17 17:28 Urine Cocaine Screen Presumptive negative 05/06/17 17:28 U Marijuana (THC) Screen Presumptive negative 05/06/17 17:28 Drugs of Abuse Note Disclamer 05/06/17 17:28 Plasma/Serum Alcohol < 0.01 % (0-0.07) 05/06/17 13:02 <GEOFF CARDOZA - Last Filed: 05/22/17 07:52> Assessment and Plan Assessment and plan: I saw and evaluated the patient. I agree with the findings and the plan of care as documented in the Nurse Practitioner's~note, with the following corrections and additions. Was still awaiting patient's son to come pick the patient up as he is still refusing any follow-up or severe and his mother. Hospitalist Physical - Constitutional Vitals: Temp Pulse Resp BP Pulse Ox 97.9 F 67 18 106/66 54 L 05/22/17 05:20 05/22/17 05:20 05/22/17 05:20 05/22/17 05:20 05/22/17 05:20 Results - Labs CBC & Chem 7: 05/14/17 15:13 05/14/17 15:13 Labs: Laboratory Last Values WBC 5.6 K/mm3 (4.5-11.0) 05/14/17 15:13 RBC 4.85 M/mm3 (3.65-5.03) 05/14/17 15:13 Hgb 14.9 gm/dl (10.1-14.3) H 05/14/17 15:13 Hct 45.3 % (30.3-42.9) H 05/14/17 15:13 MCV 93 fl (79-97) 05/14/17 15:13 MCH 31 pg (28-32) 05/14/17 15:13 MCHC 33 % (30-34) 05/14/17 15:13 RDW 14.2 % (13.2-15.2) 05/14/17 15:13 Plt Count 169 K/mm3 (140-440) 05/14/17 15:13 Lymph % (Auto) 24.2 % (13.4-35.0) 05/14/17 15:13 [place]auf[place] % (Auto) 9.4 % (0.0-7.3) H 05/14/17 15:13 Eos % (Auto) 1.4 % (0.0-4.3) 05/14/17 15:13 Baso % (Auto) 0.5 % (0.0-1.8) 05/14/17 15:13 Lymph # 1.4 K/mm3 (1.2-5.4) 05/14/17 15:13 [place] # 0.5 K/mm3 (0.0-0.8) 05/14/17 15:13 Eos # 0.1 K/mm3 (0.0-0.4) 05/14/17 15:13 Baso # 0.0 K/mm3 (0.0-0.1) 05/14/17 15:13 Seg Neutrophils % 64.5 % (40.0-70.0) 05/14/17 15:13 Seg Neutrophils # 3.6 K/mm3 (1.8-7.7) 05/14/17 15:13 Sodium 141 mmol/L (137-145) 05/14/17 15:13 Potassium 4.7 mmol/L (3.6-5.0) 05/14/17 15:13 Chloride 104.2 mmol/L (98-107) 05/14/17 15:13 Carbon Dioxide 25 mmol/L (22-30) 05/14/17 15:13 Anion Gap 17 mmol/L 05/14/17 15:13 BUN 8 mg/dL (7-17) 05/14/17 15:13 Creatinine 0.5 mg/dL (0.7-1.2) L 05/14/17 15:13 Estimated GFR > 60 ml/min 05/14/17 15:13 BUN/Creatinine Ratio 16 % 05/14/17 15:13 Glucose 98 mg/dL (65-100) 05/14/17 15:13 POC Glucose 69 (70-105) L 05/21/17 11:54 Hemoglobin A1c 5.6 % (4-6) 05/06/17 22:17 Calcium 8.5 mg/dL (8.4-10.2) 05/14/17 15:13 Total Bilirubin 0.30 mg/dL (0.1-1.2) 05/07/17 03:34 AST 21 units/L (5-40) 05/07/17 03:34 ALT 40 units/L (7-56) 05/07/17 03:34 Alkaline Phosphatase 179 units/L (35-129) H 05/07/17 03:34 Ammonia 51.0 umol/L (25-60) 05/19/17 10:37 Troponin T < 0.010 ng/mL (0.00-0.029) 05/07/17 08:27 Total Protein 6.1 g/dL (6.3-8.2) L 05/07/17 03:34 Albumin 3.8 g/dL (3.9-5) L 05/07/17 03:34 Albumin/Globulin Ratio 1.7 % 05/07/17 03:34 TSH 2.220 mlU/mL (0.270-4.200) 05/06/17 13:02 Urine Color Yellow (Yellow) 05/06/17 17:28 Urine Turbidity Clear (Clear) 05/06/17 17:28 Urine pH 5.0 (5.0-7.0) 05/06/17 17:28 Ur Specific [place] 1.021 (1.003-1.030) 05/06/17 17:28 Urine Protein <15 mg/dl mg/dL (Negative) 05/06/17 17:28 Urine Glucose (UA) >=500 mg/dL (Negative) 05/06/17 17:28 Urine Ketones Neg mg/dL (Negative) 05/06/17 17:28 Urine Blood Neg (Negative) 05/06/17 17:28 Urine Nitrite Neg (Negative) 05/06/17 17:28 Urine Bilirubin Neg (Negative) 05/06/17 17:28 Urine Urobilinogen < 2.0 mg/dL (<2.0) 05/06/17 17:28 Ur Leukocyte Esterase Neg (Negative) 05/06/17 17:28 Urine WBC (Auto) 1.0 /HPF (0.0-6.0) 05/06/17 17:28 Urine RBC (Auto) 3.0 /HPF (0.0-6.0) 05/06/17 17:28 U Epithel Cells (Auto) < 1.0 /HPF (0-13.0) 05/06/17 17:28 Urine Mucus Few /HPF 05/06/17 17:28 Salicylates < 0.3 mg/dL (2.8-20.0) L 05/06/17 13:02 Urine Opiates Screen Presumptive negative 05/06/17 17:28 Urine Methadone Screen Presumptive negative 05/06/17 17:28 Acetaminophen < 5.0 ug/mL (10.0-30.0) L 05/06/17 13:02 Ur Barbiturates Screen Presumptive negative 05/06/17 17:28 Ur Phencyclidine Scrn Presumptive negative 05/06/17 17:28 Ur Amphetamines Screen Presumptive negative 05/06/17 17:28 U Benzodiazepines Scrn Presumptive positive 05/06/17 17:28 Urine Cocaine Screen Presumptive negative 05/06/17 17:28 U Marijuana (THC) Screen Presumptive negative 05/06/17 17:28 Drugs of Abuse Note Disclamer 05/06/17 17:28 Plasma/Serum Alcohol < 0.01 % (0-0.07) 05/06/17 13:02
[2017-05-21] MEDS: VALIUM PO SCH (22:06)
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
[2017-05-22] MEDS: PEPCID PO SCH (13:07)
[2017-05-22] MEDS: KEPPRA PO SCH (13:07)
--- NOTE | 2017-05-22 16:40 | Progress Note ---
Subjective - Reason for Consult Consult date: 05/22/17 Reason for consult: Psychiatric Follow-up Evaluation - Chief Complaint Chief complaint: Altered Mental Status Liss is a 62-year-old -[place] female who presented with benzodiazepine intoxication. Today patient is alert but non verbal. She does not respond to questions. Son is at bedside. He states that his mother is nonverbal. Patient, nurse, and son at bedside preparing for discharge. She is in no apparent distress. No gestures of SI/HI's. Mental Status Exam - Vital signs Last Vital Signs Temp 96.0 F L 05/22/17 08:01 Pulse 67 05/22/17 05:20 Resp 18 05/22/17 08:01 BP 109/69 05/22/17 08:01 Pulse Ox 54 L 05/22/17 05:20 - Exam Narrative exam: Mental Status Exam General Appearance: Disheveled in restraints Eye Contact: Poor Orientation: Alert and oriented x 0; Confused Attitude/Behavior: Unable to assess Sensorium: Unable to assess Psychomotor & Musculoskeletal Activity: Fidgety-less Mood: Anxious Affect: Inappropriate Speech/Language: Unable to assess Thought Processes: Unable to assess Thought Content: Unable to assess Perception: Unable to assess Concentration/Attention: Unable to assess Suicidal Ideation/Plan: Unable to assess Homicidal Ideation/Plan: Unable to assess Assessment and Plan Impression: Hx of Dementia. 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 Today the patient is awake. Fidgety behavior noted. She continues to be nonverbal. Patient in no apparent distress. Medical: Acute Toxic Metabolic Encephalopathy (Benzo Intoxication). Recommendation/Plan: Continue Valium taper per the Hospitalist. Recommend the following delirium precautions below: 1. Frequently reorient patient and involve him/her in their care (simple explanations of procedures, tests, medications). 2. Lights on and shades open during daytime hours. 3. Try to avoid unnecessary interruptions to sleep during nighttime hours. 4. Obtain glasses, hearing aids from home if patient uses these at baseline. 5. Avoid medications that may exacerbate delirium (especially narcotics, barbiturates, ambien, lunesta, benzos, and medications with excessive anticholinergic properties). The patient is currently being tapered off Valium.
[2017-05-22 17:29] VITALS: BP 43/16
[2017-05-22] MEDS: SODIUM CHLORIDE FLUSH SYRINGE 10 ML IV SCH (19:55)
== END 2017-05-22 18:40 | disposition home health service (06) | DRG 917 ==
LOC: ED 11:21 → 4A 18:01 → 3A 05-22 08:03
PROVIDERS: ADMIT Internal Medicine; ATTEND Internal Medicine
PROC: 3E0234Z Introduction of Serum, Toxoid and Vaccine into Muscle, Percutaneous Approach (ICD-10-PCS; principal; 2017-05-09)
DX: T42.4X1A Poisoning by benzodiazepines, accidental (unintentional), initial encounter (principal); G92 Toxic encephalopathy; E43 Unspecified severe protein-calorie malnutrition; Z68.1 Body mass index [BMI] 19.9 or less, adult; R00.1 Bradycardia, unspecified; E16.2 Hypoglycemia, unspecified; F13.10 Sedative, hypnotic or anxiolytic abuse, uncomplicated; F03.90 Unspecified dementia, unspecified severity, without behavioral disturbance, psychotic disturbance, mood disturbance, and anxiety; G40.909 Epilepsy, unspecified, not intractable, without status epilepticus; T68.XXXA Hypothermia, initial encounter; Z79.899 Other long term (current) drug therapy; Y92.89 Other specified places as the place of occurrence of the external cause; Z23 Encounter for immunization
CPT/HCPCS: 36415; 70450; 71045; 74230; 80048; 80053; 80307; 80320; 81001; 82140; 82962; 83036; 84443; 84484; 85025; 85027; 87497; 87529; 90686; 90732; 93005; 93010; 93306; 96361; 96374; 96375; 96376; G0480; G8996-GN; G8997-GN; G8998-GN; J0461; J1610; J1644; J1956; J2060; J2270; J3370; J7030; J7042; J7050